=== PATIENT | female | born 1950 | race Caucasian/White ===

== ENCOUNTER → 2020-04-30 15:43 | Outpatient (CLI) | payer MEDICARE, SELFPAY ==
[2020-04-18 16:50] VITALS: BMI 53.6
--- NOTE | 2020-04-30 15:55 | MRI_ITS ---
STUDY: MRI LUMBAR SPINE WITHOUT CONTRAST REASON FOR EXAM: Female, 69 years old. Neurogenic claudication TECHNIQUE: Standardized fat and water weighted pulse sequences were obtained in the sagittal and axial planes. COMPARISON: MRI of the lumbar spine dated July 27, 2016. FINDINGS: No demonstrated fracture or compression deformity or aggressive process. Normal lumbar lordosis. Mild to moderate dextroscoliosis is present. Normal conus medullaris that terminates at the T12-L1 level. L1-2: Mild to moderate disc space narrowing with a mild diffuse disc osteophyte complex.. Normal bilateral facet joints. Normal central canal and bilateral lateral recesses. Normal bilateral intervertebral neural foramina. L2-3: Moderate disc space narrowing with a diffuse disc spur complex left lateral recess stenosis with nerve root compression is present to moderate facet joint hypertrophy. Normal central canal and right lateral recess. Normal bilateral intervertebral neural foramina. L3-4: Mild to moderate disc space narrowing is present and associated with a diffuse disc osteophyte complex. Moderate endplate degenerative changes are present. Left lateral recess stenosis is present without nerve root compression secondary to facet joint hypertrophy. There is moderate hypertrophy and degeneration of the bilateral facet joints and ligamenta flava which contribute to bilateral lateral recess stenosis with nerve root compression and mild central canal stenosis. Mild bilateral foraminal stenosis is present without nerve root compression. L4-5: Moderate disc space narrowing is present resulting in a diffuse disc osteophyte complex. Anterolisthesis of L4 and L5 of 3 mm is present. Appearance of a left L4 pars interarticularis defect. Moderate right foraminal stenosis with nerve root compression is present. Moderate to severe hypertrophy of the right facet joint noted. Right lateral recess stenosis with nerve root compression is also present, in addition to mild central canal stenosis. Normal left lateral recess and neural foramen. L5-S1: Mild to moderate disc space narrowing associated with the posterior disc osteophyte complex.. Normal bilateral facet joints. Normal central canal and bilateral lateral recesses. Normal bilateral intervertebral neural foramina. Normal visualized sacral ala. Normal visualized paraspinous soft tissue structures. MRI/Spine Lumbar (Routine) IMPRESSION: 1. Multilevel degenerative changes, as described above. Interval worsening from the prior study. Electronically Signed: Tomasz Hinojosa MD at 19:05 EDT , Service support ,
== END ==
PROVIDERS: Referring Provider Psychiatry & Neurology Neurology; Visit Provider Psychiatry & Neurology Neurology
DX: M54.9 Dorsalgia, unspecified (principal); M53.9 Dorsopathy, unspecified
CPT/HCPCS: 72148

== ENCOUNTER → 2020-06-11 16:29 | Outpatient (CLI) | payer MEDICARE, SELFPAY ==
[2020-06-11 15:17] VITALS: BMI 53.6
[2020-06-11 17:31] LABS: Vitamin B12 773 pg/mL (211-911)
[2020-06-13 20:07] LABS: Free Kappa Light Chains 28.5 mg/L (3.3-19.4); Free Lambda Light Chains 16.6 mg/L (5.7-26.3)
== END ==
PROVIDERS: Nurse Practitioner Family; Referring Provider Psychiatry & Neurology Neurology; Visit Provider Psychiatry & Neurology Neurology
DX: G62.9 Polyneuropathy, unspecified (principal)
CPT/HCPCS: 36415; 82607; 82746; 83883

== ENCOUNTER → 2020-08-13 15:35 | Outpatient (CLI) | payer MEDICARE, SELFPAY ==
[2020-08-16 14:36] LABS: Albumin 3.4 g/dL (2.9-4.4); Alpha-1-Globulins 0.2 g/dL (0.0-0.4); Alpha-2-Globulins 0.9 g/dL (0.4-1.0); Gamma Globulin 0.7 g/dL (0.4-1.8); Immunoglobulin A 298 mg/dL (87-352); Immunoglobulin G 834 mg/dL (586-1602); Immunoglobulin M 38 mg/dL (26-217); PROEL- TOTAL PROTEIN 6.4 g/dL (6.0-8.5)
== END ==
PROVIDERS: Referring Provider Psychiatry & Neurology Neurology; Visit Provider Psychiatry & Neurology Neurology
DX: G62.9 Polyneuropathy, unspecified (principal)
CPT/HCPCS: 36415; 82784; 84165; 86334; 86335

== ENCOUNTER → 2021-07-10 16:34 | Outpatient (CLI) | payer MEDICARE, SELFPAY ==
[2021-07-10 17:54] LABS: Anion Gap 8 (5-15); BUN 18 mg/dL (7-18); BUN/Creat Ratio 23.7 RATIO (10-20); Calcium,Total 9.4 mg/dL (8.5-10.1); Chloride 102 mmol/L (98-107); Creatinine, Serum 0.76 mg/dL (0.55-1.02); EST Glomerular Filtration Rate 80 mL/min (>60); Est Glom Filt Rate - Afr Amer 97 mL/min (>60); Glucose 93 mg/dL (74-106); Sodium Level 140 mmol/L (136-145)
== END ==
PROVIDERS: Referring Provider Psychiatry & Neurology Neurology; Visit Provider Psychiatry & Neurology Neurology
DX: E11.42 Type 2 diabetes mellitus with diabetic polyneuropathy (principal)
CPT/HCPCS: 36415; 80048